=== PATIENT | male | born 1980 | race Caucasian/White ===

== ENCOUNTER → 2016-07-22 | Outpatient (CLI) | payer MEDICARE, MEDICAID ==
[~2016-07-22] MED LIST: OMNIPAQUE 350 MG/ML, 75ML BOTTLE ONE
== END | disposition home or self-care (01) ==
LOC: CFH 13:15
PROVIDERS: ATTEND Internal Medicine Hematology & Oncology
DX: C62.00 Malignant neoplasm of unspecified undescended testis (principal); R91.8 Other nonspecific abnormal finding of lung field; R59.9 Enlarged lymph nodes, unspecified; M95.4 Acquired deformity of chest and rib
CPT/HCPCS: 71260; Q9967

== ENCOUNTER 2019-04-27 14:33 | Outpatient (CLI) | payer MEDICARE, MEDICAID | END 2019-04-27 23:59 | disposition home or self-care (01) | LOC: CFH 14:33 | PROVIDERS: ATTEND Nurse Practitioner Family | DX: R56.9 Unspecified convulsions (principal) | CPT/HCPCS: 36415; 82140 ==

== ENCOUNTER 2019-05-17 11:16 | Outpatient (CLI) | payer MEDICARE, MEDICAID ==
[2019-05-17] MEDS ORDERED: GADOTERATE 10 MMOL/20 ML SYR ONE (13:02)
== END 2019-05-17 23:59 | disposition home or self-care (01) ==
LOC: CFH 11:16 → CARD 23:59
PROVIDERS: ATTEND Nurse Practitioner Family
DX: R51 Headache (principal); R56.9 Unspecified convulsions
CPT/HCPCS: 70553; 95819; A9575